=== PATIENT | female | born 1950 | race African-American/Black ===

== ENCOUNTER 2019-03-10 16:48 | Inpatient (IN) | payer BC, MEDICARE ==
[~2019-03-10] VITALS: Ht 170.2 cm; Wt 68.5 kg
[2019-03-10 18:33] LABS: BASOPHILS % 0.4 % (0.0-2.0); EOSINOPHILS % 0.9 % (0.0-5.0); HEMATOCRIT. 26.4 % (36.0-48.0); HEMOGLOBIN. 8.9 g/dL (12.0-16.0); LYMPHOCYTES % 8.7 % (20.0-50.0); MEAN CORPUSCULAR VOLUME 80.3 fL (81.0-99.0); MEAN PLATELET VOLUME 10.1 fl (7.4-10.4); MONOCYTES % 9.1 % (2.0-8.0); NEUTROPHILS % 80.9 % (40.0-76.0); PLATELET 223 x1000/uL (130-400); RED BLOOD CELL COUNT 3.29 mill/uL (4.2-5.4); RED CELL DISTRIBUTION WIDTH 18.2 % (11.6-14.6)
[2019-03-10 18:39] LABS: CHLORIDE 110 mEq/L (98-107)
[2019-03-10 18:40] LABS: INR 1.1; PROTHROMBIN TIME 11.2 sec (9.6-11.0)
[2019-03-10] MEDS ORDERED: POTASSIUM CHLORIDE 20MEQ TABLET SR PO NR (19:00)
[2019-03-10] MEDS: DEXT 5%/0.45% NACL 1000ML 1,000 ML IV SCH ×2 (19:11→22:53)
[2019-03-10] MEDS ORDERED: IPRATROPIUM/ALBUTEROL 0.5-3(2.5)MG/3ML NEB INH PRN (19:15)
[2019-03-10] MEDS ORDERED: ONDANSETRON HCL 4MG/2ML INJ IV PRN (19:15)
[2019-03-10] MEDS ORDERED: MAGNESIUM/ALUMINUM HYDROXIDE/SIMETHICONE 30ML UDC PO PRN (19:15)
[2019-03-10] MEDS ORDERED: GUAIFENESIN 200MG/10ML SUGAR FREE UDC PO PRN (19:15)
[2019-03-10] MEDS ORDERED: NA PHOS,M-B/NA PHOS,DI-BA ENEMA 118ML PR PRN (19:15)
[2019-03-10] MEDS ORDERED: DIPHENHYDRAMINE 50MG/ML VIAL IV PRN (19:15)
[2019-03-10] MEDS ORDERED: DOCUSATE SODIUM 100MG CAPSULE PO PRN (19:15)
[2019-03-10] MEDS ORDERED: MORPHINE SULFATE 2 MG/ML CPJ (NOT FOR IM USE) IV PRN (19:15)
[2019-03-10] MEDS ORDERED: CLONIDINE 0.1MG TABLET PO PRN (19:15)
[2019-03-10] MEDS ORDERED: HYDRALAZINE 20MG/ML VIAL IV PRN (19:15)
[2019-03-10] MEDS ORDERED: LORAZEPAM 2MG/ML CPJ IV PRN (19:15)
[2019-03-10] MEDS ORDERED: HYDROCODONE/ACETAMINOPHEN 10/325MG TABLET PO PRN (19:15)
[2019-03-10 21:18] VITALS: BP 123/74
[2019-03-10] MEDS ORDERED: HYDRALAZINE 20 MG in SODIUM CHLORIDE 0.9% 50 ML IV PRN (21:45)
[2019-03-10] MEDS ORDERED: AMLO10TA80 PO (22:30)
[2019-03-10] MEDS: SODIUM CHLORIDE 0.9% INJ 3ML FLUSH IVF SCH (22:52)
[2019-03-11] VITALS: BP 120/79
[2019-03-11 04:00] VITALS: BP 117/70
[2019-03-11] MEDS: SODIUM CHLORIDE 0.9% INJ 3ML FLUSH IVF SCH ×3 (06:38→22:32)
[2019-03-11 06:58] LABS: BASOPHILS % 0.5 % (0.0-2.0); EOSINOPHILS % 1.6 % (0.0-5.0); HEMATOCRIT. 24.2 % (36.0-48.0); HEMOGLOBIN. 8.3 g/dL (12.0-16.0); LYMPHOCYTES % 12.1 % (20.0-50.0); MEAN CORPUSCULAR HEMOGLOBIN 27.3 pg (28.0-32.0); MEAN CORPUSCULAR VOLUME 79.9 fL (81.0-99.0); MEAN PLATELET VOLUME 10.3 fl (7.4-10.4); MONOCYTES % 10.8 % (2.0-8.0); PLATELET 216 x1000/uL (130-400); RED BLOOD CELL COUNT 3.02 mill/uL (4.2-5.4)
[2019-03-11 07:06] LABS: CHLORIDE 111 mEq/L (98-107)
[2019-03-11 08:00] VITALS: BP 116/76
[2019-03-11] MEDS ORDERED: KCL 20MEQ/100ML PREMIX 100 ML IV NR (09:00)
[2019-03-11 11:39] VITALS: BP 136/84
[2019-03-11 16:00] VITALS: BP 142/83
[2019-03-11] MEDS ORDERED: CEFAZOLIN 1000MG PREMIX 50 ML IV SCH (18:00)
[2019-03-11] MEDS: CEFAZOLIN 1000MG PREMIX 50 ML IV SCH (19:55)
[2019-03-11 20:00] VITALS: BP 135/91
[2019-03-12] VITALS: BP 131/81
[2019-03-12] MEDS: ACETAMINOPHEN 325MG TABLET PO PRN (00:37)
[2019-03-12 04:00] VITALS: BP 124/73
[2019-03-12] MEDS: CEFAZOLIN 1000MG PREMIX 50 ML IV SCH ×3 (04:00→20:54)
[2019-03-12] MEDS: DEXT 5%/0.45% NACL 1000ML 1,000 ML IV SCH (04:00)
[2019-03-12] MEDS: SODIUM CHLORIDE 0.9% INJ 3ML FLUSH IVF SCH ×3 (05:44→22:47)
[2019-03-12 07:01] LABS: BASOPHILS % 0.8 % (0.0-2.0); EOSINOPHILS % 3.4 % (0.0-5.0); HEMATOCRIT. 25.7 % (36.0-48.0); HEMOGLOBIN. 8.6 g/dL (12.0-16.0); LYMPHOCYTES % 12.9 % (20.0-50.0); MEAN CORPUSCULAR HEMOGLOBIN 26.8 pg (28.0-32.0); MEAN PLATELET VOLUME 10.6 fl (7.4-10.4); MONOCYTES % 10.7 % (2.0-8.0); NEUTROPHILS % 72.2 % (40.0-76.0); PLATELET 232 x1000/uL (130-400); RED BLOOD CELL COUNT 3.22 mill/uL (4.2-5.4); RED CELL DISTRIBUTION WIDTH 17.9 % (11.6-14.6)
[2019-03-12 07:18] LABS: CHLORIDE 109 mEq/L (98-107)
[2019-03-12 08:00] VITALS: BP 117/79
[2019-03-12 12:00] VITALS: BP 142/98
[2019-03-12] MEDS ORDERED: KCL 20MEQ/100ML PREMIX 100 ML IV NR (12:00)
[2019-03-12] MEDS ORDERED: SIMETHICONE 40 MG/0.6 ML 30ML ONE (13:40)
[2019-03-12] MEDS ORDERED: IOHEXOL-300 100 ML BOTTLE ONE (13:40)
[2019-03-12] MEDS ORDERED: FENTANYL CITRATE/PF 50MCG/ML 2ML VIAL ONE (14:15)
[2019-03-12] MEDS ORDERED: ROCURONIUM BROMIDE 10MG/ML VIAL 5ML IV ONE (14:15)
[2019-03-12] MEDS ORDERED: MIDAZOLAM HCL 2 MG/2 ML VIAL ONE (14:15)
[2019-03-12] MEDS ORDERED: LIDOCAINE HCL 1% 20ML VIAL (Pyxis) INJ ONE (14:20)
[2019-03-12] MEDS ORDERED: PROPOFOL 200MG/20ML VIAL IV ONE (14:20)
[2019-03-12] MEDS ORDERED: SODIUM CHLORIDE 0.9% 10ML VIAL ONE (14:56)
[2019-03-12] MEDS ORDERED: EPHEDRINE SULFATE 50MG/ML VIAL ONE (14:56)
[2019-03-12] MEDS ORDERED: PHENYLEPHRINE HCL 10 MG/ML 1ML (IV VIAL) IV ONE (14:57)
[2019-03-12] MEDS ORDERED: GLYCOPYRROLATE 0.2 MG/ML 2ML VIAL ONE (15:32)
[2019-03-12] MEDS ORDERED: NEOSTIGMINE METHYLSULFATE 1MG/ML 10 ML VIAL ONE (15:32)
[2019-03-12] MEDS ORDERED: ONDANSETRON HCL 4MG/2ML INJ ONE (15:34)
[2019-03-12 20:00] VITALS: BP 142/94
[2019-03-13] VITALS: BP 109/78
[2019-03-13] MEDS: CEFAZOLIN 1000MG PREMIX 50 ML IV SCH ×3 (03:29→21:50)
[2019-03-13 04:00] VITALS: BP 114/79
[2019-03-13] MEDS: SODIUM CHLORIDE 0.9% INJ 3ML FLUSH IVF SCH ×3 (06:18→21:46)
[2019-03-13 07:24] LABS: BASOPHILS % 0.6 % (0.0-2.0); EOSINOPHILS % 2.6 % (0.0-5.0); HEMATOCRIT. 25.4 % (36.0-48.0); HEMOGLOBIN. 8.4 g/dL (12.0-16.0); LYMPHOCYTES % 12.9 % (20.0-50.0); MEAN CORPUSCULAR HEMOGLOBIN 26.3 pg (28.0-32.0); MEAN CORPUSCULAR VOLUME 79.7 fL (81.0-99.0); MEAN PLATELET VOLUME 10.3 fl (7.4-10.4); MONOCYTES % 9.2 % (2.0-8.0); NEUTROPHILS % 74.7 % (40.0-76.0); PLATELET 230 x1000/uL (130-400); RED BLOOD CELL COUNT 3.19 mill/uL (4.2-5.4)
[2019-03-13 07:40] LABS: CHLORIDE 107 mEq/L (98-107)
[2019-03-13 08:00] VITALS: BP 126/86
[2019-03-13] MEDS ORDERED: IOHEXOL-300 100 ML BOTTLE ONE (08:39)
[2019-03-13] MEDS ORDERED: KCL 20MEQ/100ML PREMIX 100 ML IV NR (11:00)
[2019-03-13 12:00] VITALS: BP 144/87
[2019-03-13 16:00] VITALS: BP 131/79
[2019-03-13 20:00] VITALS: BP 108/81
[2019-03-14] VITALS: BP 125/75
[2019-03-14] MEDS: CEFAZOLIN 1000MG PREMIX 50 ML IV SCH ×3 (03:23→20:49)
[2019-03-14 04:00] VITALS: BP 134/89
[2019-03-14] MEDS: SODIUM CHLORIDE 0.9% INJ 3ML FLUSH IVF SCH ×2 (05:23→22:24)
[2019-03-14 06:40] LABS: BASOPHILS % 0.7 % (0.0-2.0); EOSINOPHILS % 2.3 % (0.0-5.0); HEMATOCRIT. 26.2 % (36.0-48.0); HEMOGLOBIN. 8.8 g/dL (12.0-16.0); LYMPHOCYTES % 13.8 % (20.0-50.0); MEAN CORPUSCULAR HEMOGLOBIN 26.6 pg (28.0-32.0); MEAN CORPUSCULAR VOLUME 79.2 fL (81.0-99.0); MONOCYTES % 8.6 % (2.0-8.0); NEUTROPHILS % 74.6 % (40.0-76.0); PLATELET 259 x1000/uL (130-400); RED BLOOD CELL COUNT 3.31 mill/uL (4.2-5.4); RED CELL DISTRIBUTION WIDTH 17.9 % (11.6-14.6)
[2019-03-14] MEDS: DEXT 5%/0.45% NACL 1000ML 1,000 ML IV SCH (06:53)
[2019-03-14 06:57] LABS: CHLORIDE 109 mEq/L (98-107)
[2019-03-14 08:00] VITALS: BP 138/88
[2019-03-14] MEDS: ACETAMINOPHEN 325MG TABLET PO PRN (09:15)
[2019-03-14 12:00] VITALS: BP 148/89
[2019-03-14 16:00] VITALS: BP_SYST 137; BP_SYST 148; BP_DIAS 89; BP_DIAS 90
[2019-03-14 20:00] VITALS: BP 159/92
[2019-03-14] MEDS ORDERED: KCL 20MEQ/100ML PREMIX 100 ML IV NR (22:30)
[2019-03-15] VITALS (20 sets, daily range): BP systolic 117–174; BP diastolic 81–120
[2019-03-15] MEDS: CEFAZOLIN 1000MG PREMIX 50 ML IV SCH ×3 (04:06→20:18)
[2019-03-15 07:38] LABS: BASOPHILS % 0.5 % (0.0-2.0); EOSINOPHILS % 2.2 % (0.0-5.0); HEMATOCRIT. 26.1 % (36.0-48.0); HEMOGLOBIN. 8.8 g/dL (12.0-16.0); INR 1.2; LYMPHOCYTES % 10.8 % (20.0-50.0); MEAN CORPUSCULAR HEMOGLOBIN 26.8 pg (28.0-32.0); MEAN CORPUSCULAR VOLUME 79.2 fL (81.0-99.0); MONOCYTES % 9.2 % (2.0-8.0); NEUTROPHILS % 77.3 % (40.0-76.0); PARTIAL THROMBOPLASTIN TIME 32.9 sec (23.4-31.0); PLATELET 251 x1000/uL (130-400); PROTHROMBIN TIME 12.1 sec (9.6-11.0); RED BLOOD CELL COUNT 3.29 mill/uL (4.2-5.4); RED CELL DISTRIBUTION WIDTH 17.8 % (11.6-14.6)
[2019-03-15 08:38] LABS: CHLORIDE 108 mEq/L (98-107)
[2019-03-15] MEDS ORDERED: FENTANYL CITRATE/PF 50MCG/ML 2ML VIAL ONE (10:14)
[2019-03-15] MEDS ORDERED: MIDAZOLAM HCL 2 MG/2 ML VIAL ONE (10:14)
[2019-03-15] MEDS ORDERED: LIDOCAINE HCL 1% 20ML VIAL (Pyxis) INJ ONE (10:22)
[2019-03-15] MEDS ORDERED: SODIUM BICARBONATE 4% (2.4MEQ) 5ML VIAL IV ONE (10:22)
[2019-03-15] MEDS ORDERED: IOHEXOL-300 50 ML BOTTLE IV ONE (10:22)
[2019-03-15] MEDS ORDERED: MIDAZOLAM HCL 5 MG/5 ML VIAL IV ONE (11:00)
[2019-03-15] MEDS ORDERED: FENTANYL CITRATE/PF 50MCG/ML 2ML VIAL IV ONE (11:00)
[2019-03-16] VITALS: BP 146/95
[2019-03-16 04:00] VITALS: BP 134/85
[2019-03-16] MEDS: CEFAZOLIN 1000MG PREMIX 50 ML IV SCH ×2 (04:01→13:19)
[2019-03-16] MEDS: DEXT 5%/0.45% NACL 1000ML 1,000 ML IV SCH (04:08)
[2019-03-16] MEDS: SODIUM CHLORIDE 0.9% INJ 3ML FLUSH IVF SCH ×2 (05:12→13:19)
[2019-03-16 08:00] VITALS: BP 124/90
[2019-03-16 09:17] LABS: BASOPHILS % 0.5 % (0.0-2.0); HEMATOCRIT. 30.3 % (36.0-48.0); HEMOGLOBIN. 9.8 g/dL (12.0-16.0); LYMPHOCYTES % 10.9 % (20.0-50.0); MEAN CORPUSCULAR HEMOGLOBIN 26.3 pg (28.0-32.0); MEAN CORPUSCULAR VOLUME 81.4 fL (81.0-99.0); MEAN PLATELET VOLUME 10.1 fl (7.4-10.4); MONOCYTES % 9.1 % (2.0-8.0); NEUTROPHILS % 77.5 % (40.0-76.0); PLATELET 273 x1000/uL (130-400); RED BLOOD CELL COUNT 3.72 mill/uL (4.2-5.4); RED CELL DISTRIBUTION WIDTH 18.1 % (11.6-14.6)
[2019-03-16 10:15] LABS: CHLORIDE 101 mEq/L (98-107)
[2019-03-16 11:52] VITALS: BP 136/71
[2019-03-16 15:45] VITALS: BP 158/95
[2019-03-16] MEDS ORDERED: AMLODIPINE 10MG TABLET PO NR (17:45)
[2019-03-16 18:05] VITALS: BP 149/99
== END 2019-03-16 18:40 | disposition home health service (06) | DRG 374 ==
LOC: ER 16:48 → 6EST 18:59 → EDBEDREQ 19:01 → EDBEDREQTM 19:01 → EDBEDREQSVC 19:01 → ENRESERV 20:14
PROVIDERS: ADMIT Internal Medicine; ATTEND Internal Medicine
PROC: 0FJB8ZZ Inspection of Hepatobiliary Duct, Via Natural or Artificial Opening Endoscopic (ICD-10-PCS; principal; 2019-03-12)
PROC: 0DB98ZX Excision of Duodenum, Via Natural or Artificial Opening Endoscopic, Diagnostic (ICD-10-PCS; 2019-03-12)
PROC: BF101ZZ Fluoroscopy of Bile Ducts using Low Osmolar Contrast (ICD-10-PCS; 2019-03-12)
PROC: 0F9930Z Drainage of Common Bile Duct with Drainage Device, Percutaneous Approach (ICD-10-PCS; 2019-03-12)
DX: C78.4 Secondary malignant neoplasm of small intestine (principal); K83.1 Obstruction of bile duct; C80.0 Disseminated malignant neoplasm, unspecified; C78.89 Secondary malignant neoplasm of other digestive organs; E87.6 Hypokalemia; R63.4 Abnormal weight loss; I10 Essential (primary) hypertension; K86.9 Disease of pancreas, unspecified; Z85.038 Personal history of other malignant neoplasm of large intestine; Z90.49 Acquired absence of other specified parts of digestive tract; Z92.21 Personal history of antineoplastic chemotherapy; Z92.3 Personal history of irradiation
CPT/HCPCS: 36415; 47534; 71045; 71260; 74177; 74181; 80048; 80076; 82248; 82378; 83605; 86301; 86850; 86870; 86900; 88305; 93005; 93970; 99152; 99153; 99285; C1725; C1726; C1769; J0690; J2250; J2370; J2405; J2704; J2710; J3010; J3480; J3490; J7040; Q9967; G0500